=== PATIENT | female | born 1975 | race Caucasian/White ===

== ENCOUNTER 2018-02-23 06:18 | Inpatient (IN) | payer BC ==
[2018-02-23] MEDS ORDERED: Penicillin G Potassium 5 MILL.UNITS VIAL ONE ×2 (06:43)
[2018-02-23 06:52] VITALS: BMI 26.6
[2018-02-23] MEDS ORDERED: Penicillin G Potassium 5 MILL.UNITS in Sodium Chloride 0.9% 100 ML IVPB SCH (07:00)
[2018-02-23] MEDS ORDERED: NS / Oxytocin 40 units/1000ml 0 ML ONE (07:04)
[2018-02-23] MEDS ORDERED: NS / Oxytocin 40 units/1000ml 1,000 ML ONE (07:04)
[2018-02-23] MEDS ORDERED: Butorphanol Tartrate 1 MG/ML VIAL ONE (07:13)
[2018-02-23] MEDS ORDERED: Bupivacaine 0.5% 20 ML, fentaNYL Citrate/PF 400 MCG in Sodium Chloride 0.9% 72 ML EPIDURAL SCH (07:15)
[2018-02-23] MEDS ORDERED: DISCONTINUE ALL PREVIOUS NARCOTICS FS SCH (07:15)
[2018-02-23] MEDS ORDERED: Lidocaine 1% (PF) 30 ML VIAL SC PRN (07:29)
[2018-02-23] MEDS ORDERED: Ibuprofen 800 MG TAB PO PRN (07:29)
[2018-02-23] MEDS ORDERED: NS / Oxytocin 40 units/1000ml 1,000 ML IV PRN (07:29)
[2018-02-23] MEDS ORDERED: Ondansetron HCl/PF 4 MG/2 ML Vial IVP PRN (07:29)
[2018-02-23] MEDS ORDERED: Butorphanol Tartrate 1 MG/ML VIAL SLOW IVP PRN (07:29)
[2018-02-23] MEDS ORDERED: Promethazine HCl 25 MG/ML VIAL IM PRN (07:29)
[2018-02-23] MEDS ORDERED: HYDROcodone/Acetaminophen 5/325 mg Tablet PO PRN (07:29)
[2018-02-23] MEDS ORDERED: Lactated Ringer's 1,000 ML IV SCH ×2 (07:29)
[2018-02-23 07:38] LABS: Hemoglobin 12.7 g/dL (12.0-16.0); Mean Corpuscular HGB CONC 33.4 g/dL (32.0-36.0); Mean Corpuscular Hemoglobin 30.7 pg (27.0-31.0); Mean Corpuscular Volume 91.8 fL (78.0-98.0); Mean Platelet Volume 8.9 fL (7.4-10.4); Platelet Count 195 thou/uL (130-400); RBC Distribution Width 12.2 % (11.5-14.5); Red Blood Cell (RBC) Count 4.14 mill/uL (4.20-5.40); White Blood Cell (WBC) Count 11.2 thou/uL (4.8-10.8)
[2018-02-23 07:55] LABS: Actual Bicarbonate (HCO3a) 24.9 mEq/L (22-28); Analyzer IN Cardio OR; Base Excess (BEa) -5.8 mEq/L (-2.0 to +3.0)
[2018-02-23] MEDS ORDERED: Zolpidem Tartrate 5 MG TAB PO PRN (07:57)
[2018-02-23] MEDS ORDERED: Adacel (T-DAP) 0.5 ML VIAL IM ONE (07:57)
[2018-02-23] MEDS ORDERED: Preparation H Ointment 28 GM TUBE PR PRN (07:57)
[2018-02-23] MEDS ORDERED: Bisacodyl 10 MG SUPP PR PRN (07:57)
[2018-02-23] MEDS ORDERED: Benzocaine/Menthol 20-0.5% 60 ML CAN TOP PRN (07:57)
[2018-02-23] MEDS ORDERED: diphenhydrAMINE 25 MG CAP PO PRN (07:57)
[2018-02-23] MEDS ORDERED: Misoprostol 200 MCG TAB VAG PRN (07:57)
[2018-02-23] MEDS ORDERED: Lanolin Ointment 7 GM TUBE TOP PRN (07:57)
[2018-02-23] MEDS ORDERED: Milk Of Magnesia 30 ML UDCUP PO PRN (07:57)
[2018-02-23] MEDS ORDERED: NS / Oxytocin 40 units/1000ml 1,000 ML IV SCH (08:00)
--- NOTE | 2018-02-23 08:00 | PDOC.OPDEL ---
OB Operative/Delivery Note Delivery Dr/Surgeon: Carlos Pre-Delivery Diagnosis: active labor Procedure/Post Delivery Dx: operative vaginal delivery Weeks gestation: 40 Anesthesia: local - Findings A Sex: female - 1 min: 7 - 5 min: 9 - Additional Findings/Plan Placenta delivered: spontaneous Repaired Obstetrical Laceration: 1st degree Compilations/Other Findings: none Post delivery plan: routine recovery (VE assited outlet delivery for non reassurring fhrt.. thick meconium.)
[2018-02-23 08:11] LABS: HBSAg Index 0.23 S/CO (0-0.99); Hep B Surf Ag Non-Reactive S/CO (NonReactive); Syphilis Antibody Nonreactive (Nonreactive); Syphilis Antibody Index 0.05 S/CO (<1.00 Non-Reactive)
[2018-02-23] MEDS: Lidocaine 1% (PF) 30 ML VIAL ONE (09:50)
[2018-02-23] MEDS: HYDROcodone/Acetaminophen 5/325 mg Tablet PO PRN ×2 (09:54→10:28)
[2018-02-23] MEDS ORDERED: Penicillin G 2.5 MILL.units 2.5 MILL.UNITS in Premix Bag 1 BAG IVPB SCH (11:00)
[2018-02-23] MEDS: Ferrous Sulfate 325 MG TAB PO SCH ×2 (19:43→19:44)
[2018-02-23] MEDS: Docusate Calcium (SURFAK) 240 MG CAP PO SCH (20:41)
[2018-02-23] MEDS: Ibuprofen 800 MG TAB PO SCH (20:41)
[2018-02-24] MEDS ORDERED: HYDROcodone/Acetaminophen 5/325 mg Tablet PO PRN ×2 (01:38→16:11)
[2018-02-24] MEDS: HYDROcodone/Acetaminophen 5/325 mg Tablet PO PRN ×4 (01:52→20:46)
[2018-02-24] MEDS: Ibuprofen 800 MG TAB PO SCH ×5 (02:38→21:29)
[2018-02-24] MEDS: Lidocaine 1% (PF) 30 ML VIAL ONE (02:39)
[2018-02-24] MEDS: Docusate Calcium (SURFAK) 240 MG CAP PO SCH ×4 (02:43→20:46)
[2018-02-24] MEDS: Prenatal Vitamin 1 TAB PO SCH ×2 (02:43→08:56)
--- NOTE | 2018-02-24 08:01 | PDOC.PP ---
Post Progress Note Post Day #: 1 PO intake tolerated: yes Flatus: yes Ambulation: yes Vital Signs (12 hours) Temp Pulse Resp BP BP BP Pulse Ox 02/24/18 05:15 97.8 F 60 18 104/51 L 02/24/18 00:55 98.1 F 68 18 97/55 L 02/23/18 20:00 98.1 F 70 18 113/67 97 Weight Weight 160 lb - Physical Examination General: NAD Cardiovascular: no m/r/g, RRR Respiratory: clear to auscultation bilaterally, non-labored breathing Abdominal: + bowel sounds, lochia, no distention, appropriately TTP Result Diagrams: 02/23/18 06:35 Additional Labs: Post Labs Blood Type A NEGATIVE 02/23/18 06:35 Hep Bs Antigen Non-Reactive S/CO (NonReactive) 02/23/18 06:35 - Assessment/Plan Post day 1--..Doing well. GBS positive---recieved one dose prior to delivery. Follow up 6 weeks. Possible discharge.
[2018-02-24] MEDS: Ferrous Sulfate 325 MG TAB PO SCH ×2 (09:29→17:09)
[2018-02-24] MEDS ORDERED: HYDROcodone/Acetaminophen 10/325 mg Tablet PO PRN ×2 (15:30)
[2018-02-25] MEDS: HYDROcodone/Acetaminophen 5/325 mg Tablet PO PRN ×3 (03:05→14:45)
[2018-02-25] MEDS: Ibuprofen 800 MG TAB PO SCH ×2 (05:20→14:42)
[2018-02-25] MEDS: Docusate Calcium (SURFAK) 240 MG CAP PO SCH (07:40)
[2018-02-25] MEDS: Prenatal Vitamin 1 TAB PO SCH (07:40)
--- NOTE | 2018-02-25 08:11 | PDOC.PP ---
Post Progress Note Post Day #: 2 PO intake tolerated: yes Flatus: yes Ambulation: yes Weight Weight 160 lb - Physical Examination General: NAD Cardiovascular: no m/r/g, RRR Respiratory: clear to auscultation bilaterally, non-labored breathing Abdominal: + bowel sounds, lochia, no distention, appropriately TTP Result Diagrams: 02/23/18 06:35 Additional Labs: Post Labs Blood Type A NEGATIVE 02/23/18 06:35 Hep Bs Antigen Non-Reactive S/CO (NonReactive) 02/23/18 06:35 - Assessment/Plan post day 2-. ready for discharge.... discharge home-tramadol. f/u 6 weeks.
[2018-02-25 08:28] VITALS: BP 108/70; TEMP 98
[2018-02-25] MEDS: Ferrous Sulfate 325 MG TAB PO SCH (14:42)
== END 2018-02-25 17:50 | disposition home or self-care (01) | DRG 775 ==
LOC: L&D/OP 06:18 → L&D 07:54 → 3SW 14:17
PROVIDERS: ADMIT Obstetrics & Gynecology; ATTEND Obstetrics & Gynecology
PROC: 0HQ9XZZ Repair Perineum Skin, External Approach (ICD-10-PCS; principal; 2018-02-23)
PROC: 10D07Z6 Extraction of Products of Conception, Vacuum, Via Natural or Artificial Opening (ICD-10-PCS; 2018-02-23)
DX: O34.219 Maternal care for unspecified type scar from previous cesarean delivery (principal); O70.0 First degree perineal laceration during delivery; Z37.0 Single live birth; Z3A.40 40 weeks gestation of pregnancy; O99.824 Streptococcus B carrier state complicating childbirth
CPT/HCPCS: 82805; 85027; 86780; 86850; 86870; 86900; 86901; 87340; 99285; J0595; J2001; J2540; J3010; J3490; J7050

== ENCOUNTER 2023-11-09 13:19 | Outpatient (CLI) | payer BC | END 2023-11-09 13:20 | disposition home or self-care (01) | LOC: EEG 13:19 | PROVIDERS: ATTEND Psychiatry & Neurology Neurology | DX: R56.9 Unspecified convulsions (principal) | CPT/HCPCS: 95816 ==

== ENCOUNTER 2024-12-29 10:39 | Outpatient (CLI) | payer BC | END 2024-12-29 10:40 | disposition home or self-care (01) | LOC: ULT 10:39 | PROVIDERS: ATTEND Family Medicine | DX: R79.89 Other specified abnormal findings of blood chemistry (principal); K76.0 Fatty (change of) liver, not elsewhere classified | CPT/HCPCS: 76705 ==